=== PATIENT | female | born 1960 | race Caucasian/White ===

== ENCOUNTER → 2017-03-02 | Outpatient (CLI) | payer BC ==
[~2017-03-02] MED LIST: ALLEGRA ALLERG180 MG PO; BENZONATATE PO; COZAAR100 MG PO; IBUPROFEN PO; MEDROL PO; NEXIUM PO; NORCO 5/325 TAB1 TAB PO; ROBITUSSIN A-C S5 ML PO; VIBRAMYCIN100 M1 PO; ZANTAC150 M1 PO
--- NOTE | ~2017-03-02 | MY11 ---
[facility] of [facility] RADIOLOGY TEXT RESULTS PATIENT: HARSHA VOGT LOCATION: [facility] : 58 UNIT #: [id number] AGE: [address]: Timur Reyes MD SEX: F ORDER DR: [id number] [facility] [address] [place], [place] [address] [id number] O MR#: [id number] Acc #: [id number] NAME: HARSHA VOGT : 1960 SEX: F STUDY DATE/TIME: 03/02/2017 9:29 UNIT: [facility] ROOM: STUDY DESCRIPTION: MY Mammogram Screening Dig Brandt Attending Physician: Timur Reyes M.D. Ordering Physician: Timur Reyes M.D. Primary Care Physician: Timur Reyes M.D. MEDICAL IMAGING REPORT This report is preliminary unless electronic signature is present EXAM Digital screening mammogram 03/02/2017 HISTORY 56-year-old woman. No risk elevation. Annual screen. COMPARISON None. Previous mammogram not available, 1999. New baseline. FINDINGS Digital imaging of each breast was completed utilizing screening protocol. Review includes FDA-approved CAD device. Breast parenchyma is predominantly fatty-replaced. I see no suspicious mass. There are no microcalcifications and no suspicious architectural deformity. IMPRESSION Negative mammogram. Annual screening recommended. Patient's over the age of 40 are entered into a reminder system with target due date for the next mammogram. BIRADS: 1 Negative Dictated by... Andrea Emery M.D. THIS IS AN ELECTRONICALLY VERIFIED REPORT Andrea Emery M.D. at 03/02/2017 1:23 PM BRENT/tiffanie TD: 03/02/2017 11:25 JOB #: [id number] [facility] Service [facility] RADIOLOGY TEXT RESULTS PATIENT: HARSHA VOGT LOCATION: [facility] : 58 UNIT #: [id number] AGE: [address]: Timur Reyes MD SEX: F ORDER DR: MEDICAL IMAGING REPORT Page 1 of 1 COPY
== END | disposition home or self-care (01) ==
LOC: CWCC 09:16
DX: Z12.31 Encounter for screening mammogram for malignant neoplasm of breast (principal)
CPT/HCPCS: G0202

== ENCOUNTER 2017-03-28 12:20 | Emergency (ER) | payer BC | END 2017-03-28 14:00 | disposition home or self-care (01) | LOC: CED 12:20 | DX: L25.0 Unspecified contact dermatitis due to cosmetics (principal); I10 Essential (primary) hypertension; J45.909 Unspecified asthma, uncomplicated; E78.5 Hyperlipidemia, unspecified; Z88.2 Allergy status to sulfonamides; Z88.8 Allergy status to other drugs, medicaments and biological substances; Z79.899 Other long term (current) drug therapy | CPT/HCPCS: 96372; 99283; J1100; J1885 ==